=== PATIENT | female | born 1970 | race Caucasian/White ===

== ENCOUNTER 2017-04-11 08:50 | Inpatient (IN) | payer MEDICAID ==
[~2017-04-11] VITALS: Ht 157.5 cm; Wt 78.9 kg
[2017-04-11] VITALS (8 sets, daily range): BP systolic 105–145; BP diastolic 69–83; PULSE 61–73; RESP 16–18; TEMP 97.6–98.3; O2SAT 95–98
--- NOTE | 2017-04-11 08:52 | NUR ---
Pt BIB ALS placed ER bed 03, to ruthann, lunchroom monitor, report given to KULDEEP Barragan
--- NOTE | 2017-04-11 08:53 | NUR ---
Patient is stable. Patient states she has had sharp left side chest pain that radiates to entire left side of body for the past 12 hours continuously. Denies SOB. Patient stated it started after family verbal argument. Per medics patient was given 162mg aspirin and 1 sublingual nitro without relief. No other complaints or injuries per patient or noted.
--- NOTE | 2017-04-11 08:54 | NUR ---
Dr. Lim at bedside to assess pt.
--- NOTE | 2017-04-11 08:59 | NUR ---
Note undone in EDM - 04/11/17 at 0910 by LAWANDA Patient was brought by EMT for chest pain for the past 12 hours. EMT gave aspirin in the field. Patient has an IV 20g on RFA. Patient had an EKG done, patient is complaining of pain but no SOB. Patient is alert and oriented. Dr Lim was at bedside and EKG was read.
[2017-04-11 09:23] LABS: BASOPHILS % (AUTO) 0.7 % (0.0-2.0); EOSINOPHILS % (AUTO) 0.7 % (0.0-4.0); HEMATOCRIT 37.3 % (36-48); HEMOGLOBIN 12.1 g/dL (12.0-16.0); LYMPHOCYTES # (AUTO) 1.7 K/uL (1.0-5.5); LYMPHOCYTES % (AUTO) 26.4 % (20.5-51.5); MEAN CORPUSCULAR HEMOGLOBIN 26 pg (27-31); MEAN CORPUSCULAR HGB CONC 32 % (32-36); MEAN CORPUSCULAR VOLUME 79 fL (79.0-98.0); MONOCYTES # (AUTO) 0.3 K/uL (0.0-1.0); MONOCYTES % (AUTO) 5.1 % (1.7-9.3); NEUTROPHILS # (AUTO) 4.5 K/uL (1.8-7.7); NEUTROPHILS % (AUTO) 67.1 % (40.0-70.0); PLATELET COUNT (AUTO) 387 K/uL (130-430); RED BLOOD CELL COUNT(AUTO) 4.71 MIL/uL (4.2-6.2); RED CELL DISTRIBUTION WIDTH 17.6 % (9.0-15.0); WHITE BLOOD COUNT (AUTO) 6.5 K/uL (4.8-10.8)
[2017-04-11 09:29] LABS: CALCIUM 8.6 mg/dL (8.4-11.0); CREATININE 0.77 mg/dL (0.55-1.30); POTASSIUM 3.7 mmol/L (3.5-5.1)
[2017-04-11 09:32] LABS: INR 0.9 (0.8-1.2)
[2017-04-11 09:34] LABS: ALBUMIN 3.5 g/dL (3.4-4.8); TOTAL BILIRUBIN 0.2 mg/dL (0.0-1.0); TOTAL PROTEIN, SERUM 7.6 g/dL (6.4-8.3)
[2017-04-11] MEDS ORDERED: ASPIRIN 81 MG TABLET(ECOTRIN) PO ONE (10:15)
[2017-04-11] MEDS ORDERED: HYDROcodone/ACETAMIN 10-325 MG TAB PO ONE (10:15)
[2017-04-11] MEDS ORDERED: IBUPROFEN 600 MG TABLET PO ONE (10:15)
[2017-04-11] MEDS ORDERED: MULT-1117 PO (10:33)
[2017-04-11] MEDS ORDERED: FERR220S3 PO (10:33)
[2017-04-11] MEDS ORDERED: BECL8.7A5 INH (10:33)
[2017-04-11] MEDS ORDERED: FLUT16SP16 NS (10:33)
[2017-04-11] MEDS ORDERED: ALBMDI INH (10:33)
--- NOTE | 2017-04-11 10:33 | NUR ---
Medication reconciliation completed with information provided by patient. Any prior medication reconciliation on file was reviewed and corrected.
--- NOTE | 2017-04-11 10:46 | NUR ---
Telemetry strip printed and interpreted as sinus rhythm. HR: 70
--- NOTE | 2017-04-11 10:50 | NUR ---
Patient has two asthma medications with her, states that daughter is coming to package pick up medications and that she wishes to keep with her until she arrives. Patient educated that it is reccommended to keep her medications held in pharmacy until daughter arrives, pt wants medications to remain with her, patient verbalized understanding.
[2017-04-11 10:54] LABS: BILIRUBIN,URINE NEGATIVE (NEGATIVE); BLOOD, URINE NEGATIVE (NEGATIVE); CLARITY/URINE SL CLOUDY (CLEAR); COLOR,URINE YELLOW (YELLOW); GLUCOSE,URINE NEGATIVE (NEGATIVE); KETONES,URINE NEGATIVE (NEGATIVE); LEUKOCYTE ESTERASE ,URINE NEGATIVE (NEGATIVE); NITRITE, URINE NEGATIVE (NEGATIVE); PROTEIN URINE NEGATIVE (NEGATIVE); UROBILINOGEN,URINE 0.2 (0.2-1.0)
--- NOTE | 2017-04-11 10:58 | NUR ---
Patient will be admitted to care of Dr. Giang. Admitted to tele unit. Belongings list completed. Summary report printed. Report will be given at bedside by Laurel LIGHT
--- NOTE | 2017-04-11 11:02 | NUR ---
ADMIT NOTE Received pt from ER to the floor with a diagnosis of CHEST PAIN. Admission process initiated. patient oriented to pain management, safety and call light-teach back done.
[2017-04-11 11:15] LABS: BARBITURATE, URINE NEGATIVE (NEG <=200); BENZODIAZEPINE, URINE NEGATIVE (NEG <=150); CANNABINOID, URINE NEGATIVE (NEG <=50); COCAINE, URINE NEGATIVE (NEG <=150); METHAMPHETAMINES SCREEN,URINE NEGATIVE (NEG <=500); OPIATE, URINE NEGATIVE (NEG <=100); PHENCYCLIDINE SCREEN,URINE NEGATIVE (NEG <=25); UR TRICYCLIC ANTIDEPRESSANTS NEGATIVE (NEG <=300); URINE AMPHETAMINE NEGATIVE (NEG <=500); URINE METHADONE NEGATIVE (NEG <=200); URINE OXYCODONE SCREEN NEGATIVE (NEG <=100); URINE PROPOXYPHENE SCREEN NEGATIVE (NEG <=300)
--- NOTE | 2017-04-11 11:26 | NUR ---
ASSESSMENT NOTES: REPORT GIVEN BY ER NURSE AT BEDSIDE. PATIENT IN THE ROOM,CAME IN WITH THE DIAGNOSES OF CHEST PAIN. ADMIT NURSE IN THE ROM WELL. INITIAL ASSESSMENT RENDERED. ORIENTED TO CALL LIGHT,HOSPITAL ROUTINES AND SAFETY MEASURES RENDERED. PLACED ON TELEMETRY ORDERED.
--- NOTE | 2017-04-11 12:10 | NUR ---
meal: lunch served. stable.
[2017-04-11] MEDS ORDERED: POTASSIUM CHLORIDE 10 MEQ TAB.PRT.SR PO PRN (12:15)
[2017-04-11] MEDS ORDERED: LORazepam 2 MG/ML VIAL IVP PRN (12:15)
[2017-04-11] MEDS ORDERED: ZOLPIDEM TARTRATE 5 MG TABLET PO PRN (12:15)
[2017-04-11] MEDS ORDERED: ACETAMINOPHEN 325 MG TABLET PO PRN (12:15)
[2017-04-11] MEDS ORDERED: MAGNESIUM SULFATE 50 ML IV PRN (12:15)
[2017-04-11] MEDS ORDERED: DOCUSATE SODIUM 100 MG CAPSULE PO PRN (12:15)
[2017-04-11] MEDS ORDERED: ONDANSETRON HCL 4 MG/2 ML VIAL IVP PRN (12:15)
[2017-04-11] MEDS: MORPHINE 2 MG/ML INJ. SYRINGE IVP PRN ×2 (14:40→20:57)
--- NOTE | 2017-04-11 14:40 | NUR ---
pain meds: c/o mid chest pressure and due iv pain meds given per request.
--- NOTE | 2017-04-11 15:52 | NUR ---
CONSULT CARDIO CHEST PAIN DR JUAREZ [phone] S/W [facility] OFFICE @ [id number]
[2017-04-11] MEDS: ALBUTEROL SULFATE 0.083% 2.5 MG/3 ML VIAL.NEB INH SCH ×3 (16:14→23:00)
--- NOTE | 2017-04-11 16:30 | NUR ---
rounds: stable, resting. Patient stated pain is better this time.
--- NOTE | 2017-04-11 18:37 | NUR ---
closing notes: dinner served. denies any pain. continue to monitor.
--- NOTE | 2017-04-11 19:15 | NUR ---
change of shift.pt.assessed.pt.presents discomfort:hemiparesis:lt.side:arm/leg.i will f/u.iv access:located rt.forearm. have added the iv line extention.pt.presents room air.call light w/in the pt's reach.
--- NOTE | 2017-04-11 20:00 | NUR ---
pt.assessed.v/s assessed:values w/in normal limits.i have reiterated to the pt.that snacks are available. pt.requested skim milk and tyron crackers.i have provided the snacks.call light w/in the pt's reach.
[2017-04-11] MEDS: HEPARIN SODIUM,PORCINE 5000 UNITS/ML VIAL SUBCUT SCH (20:55)
[2017-04-11] MEDS: FLUTICASONE PROPIONATE 50 mCg/SPRAY 16 GM NS SCH (21:00)
[2017-04-11] MEDS ORDERED: ALBUTEROL MDI INHALATION 8 GM INH INH SCH (21:00)
--- NOTE | 2017-04-11 21:00 | NUR ---
pt.assessed.pt.requested medication for pain,and anxiety.i have administered:morphine:2mg ivp,ativan;2mg ivp. nila;l f/u re:pain med efficacy and anxiolytic results.call light w/in pt's reach.
--- NOTE | 2017-04-11 21:30 | NUR ---
pt.assessed post administration morphine/ativan.pt.presents quiescent affect;calm,asleep. no distress/discomfort manifested.call light w/in pt's reach.
--- NOTE | 2017-04-11 22:00 | NUR ---
pt.assessed.pt.presents quiescent affect;calm,asleep.no distress/discomfort manifested. call light w/in pt's reach.
--- NOTE | 2017-04-12 | NUR ---
pt.assessed.pt.presents quiescent affect;calm,asleep.no distress/discomfort manifested. call light w/in pt's reach.
--- NOTE | 2017-04-12 02:00 | NUR ---
pt.assessed.pt.presents quiescent affect;calm,asleep.no distress/discomfort manifested. call light w/in pt's reach.
--- NOTE | 2017-04-12 02:30 | NUR ---
pt.requested assistance to the b[facility].pt.assisted.pt.requested a sponge bath asisted per ingrid;teacher aide. pt.requested morphine/ativan following the bath.
[2017-04-12] MEDS: ALBUTEROL SULFATE 0.083% 2.5 MG/3 ML VIAL.NEB INH SCH ×5 (03:00→20:08)
--- NOTE | 2017-04-12 03:00 | NUR ---
pt.has been bathed.i have administered the morphine:2mg ivp,ativan:2mg ivp.to assess pt.re;pain afficacy and anxiolytic result .
[2017-04-12] MEDS: MORPHINE 2 MG/ML INJ. SYRINGE IVP PRN ×2 (03:01→12:10)
[2017-04-12 04:00] VITALS: BP 115/71; PULSE 62; RESP 18; TEMP 98; O2SAT 96
--- NOTE | 2017-04-12 04:00 | NUR ---
pt.assessed.v/s assessed.pt.presents quiescent affect;calm,asleep.call light w/in pt's reach.
--- NOTE | 2017-04-12 05:44 | NUR ---
pt.assessed.pt.presents quiescent affect;calm,asleep.no distress/discomfort manifested. call light w/in pt's reach.
--- NOTE | 2017-04-12 07:30 | NUR ---
am rounds: patient sleeping during rounds. report given by night nurse yu. Not in any distress. stable .
--- NOTE | 2017-04-12 07:52 | NUR ---
Nutrition Update Jason Scale 18 noted. Pt admitted for chest pain. Diet: cardiac BMI: 31.8 kg/m2 RD to follow per nutrition care standards.
[2017-04-12 08:12] VITALS: BP 106/58; PULSE 62; RESP 18; TEMP 97.5; O2SAT 100
--- NOTE | 2017-04-12 08:13 | NUR ---
vital signs: arousable,vital signs taken,afebrile and stable. no pain.
[2017-04-12] MEDS: HEPARIN SODIUM,PORCINE 5000 UNITS/ML VIAL SUBCUT SCH (10:10)
[2017-04-12] MEDS: PANTOPRAZOLE SODIUM 40 MG TAB PO SCH (10:10)
[2017-04-12] MEDS: FLUTICASONE PROPIONATE 50 mCg/SPRAY 16 GM NS SCH ×2 (10:10→20:46)
--- NOTE | 2017-04-12 10:14 | NUR ---
rounds: sitting on the bed,just finished breakfast.
[2017-04-12] MEDS ORDERED: PRO40 PO (11:07)
--- NOTE | 2017-04-12 11:23 | NUR ---
md rounds: patient seen by dr ahn with orders dc home if all test normal.f/u with pcp in 1 week.
[2017-04-12] MEDS ORDERED: PANTOPRAZOLE SODIUM 40 MG TAB PO ONE (11:30)
[2017-04-12 12:13] VITALS: BP 121/74; PULSE 74; RESP 18; TEMP 98; O2SAT 96
--- NOTE | 2017-04-12 12:16 | NUR ---
pain meds: c/o left chest pressure,due iv pain meds given per request.
--- NOTE | 2017-04-12 13:10 | NUR ---
vomits: vomitted a large amount of undigested food and due iv zofran given as ordered.
--- NOTE | 2017-04-12 15:01 | NUR ---
rounds: patient back from radiology.no vomits.
[2017-04-12 16:32] VITALS: BP 121/70; PULSE 68; RESP 15; TEMP 97.8; O2SAT 97
--- NOTE | 2017-04-12 16:42 | NUR ---
NEW ORDER: SPOKE WITH DR JORGENSEN AND RELAYED CT SCAN OF BRAIN/HEAD NORMAL,HOLD DC TONIGHT AND DC IN AM WITH SAME ORDERS.
[2017-04-12] MEDS: IBUPROFEN 400 MG TABLET PO SCH ×2 (18:22→20:46)
--- NOTE | 2017-04-12 18:23 | NUR ---
motrin: due po motrin given as scheduled. patient ate dinner well. no vomiting noted.
--- NOTE | 2017-04-12 18:54 | NUR ---
CLOSING NOTES: NO VOMITING NOTED THIS TIME. MD AWARE PATIENT HAD VOMITED EARLIER.INFORMED PATIENT HOLD DC TONIGHT AND DC IN AM ORDERED. DENIES ANY CHEST PAIN.
[2017-04-12 20:24] VITALS: BP 104/54; PULSE 71; RESP 16; TEMP 98; O2SAT 95
--- NOTE | 2017-04-12 20:25 | NUR ---
OPENING NOTES PATIENT IS A/OX4. NO SIGNS OF DISTRESS. BREATHING IS NO LABORED. IV IS PATENT. VITAL SIGNS ARE STABLE. PATIENT HAS NO COMPLAINTS OF CHEST PAIN. PATIENT INSTRUCTED TO CALL FOR ASSISTANCE. CALL LIGHT IS WITHIN REACH. SAFETY MEASURES ARE IN PLACE. PATIENT ALSO AWARE OF DISCHARGE HOME TOMORROW AFTER BREAKFAST. WILL CONTINUE TO MONITOR.
--- NOTE | 2017-04-12 23:10 | NUR ---
ROUNDS PATIENT WAS ASSISTED TO THE BEDSIDE COMMODE AND BACK INTO BED. PATIENT IS RESTING IN BED COMFORTABLY. WILL CONTINUE TO MONITOR. SAFETY MEASURES ARE IN PLACE.
[2017-04-13 00:08] VITALS: BP 101/66; PULSE 75; RESP 18; TEMP 97.7; O2SAT 96
[2017-04-13] MEDS: ALBUTEROL SULFATE 0.083% 2.5 MG/3 ML VIAL.NEB INH SCH ×3 (00:31→07:58)
--- NOTE | 2017-04-13 01:06 | NUR ---
ROUNDS PATIENT WAS ASSISTED TO THE BEDSIDE COMMODE AND BACK INTO BED. PATIENT IS RESTING IN BED. CALL LIGHT IS WITHIN REACH. SAFETY MEASURES ARE IN PLACE. WILL CONTINUE TO MONITOR.
--- NOTE | 2017-04-13 03:15 | NUR ---
ROUNDS PATIENT IS IN BED SLEEPING. NO SIGNS OF DISTRESS. BREATHING IS NON LABORED. SAFETY MEASURES ARE IN PLACE. WILL CONTINUE TO MONITOR.
[2017-04-13 04:42] VITALS: BP 127/67; PULSE 77; RESP 20; TEMP 97.3; O2SAT 97
--- NOTE | 2017-04-13 05:38 | NUR ---
ROUNDS ASSISTED PATIENT TO THE RESTROOM AND BACK INTO BED. PATIENT IS RESTING COMFORTABLY. WILL CONTINUE TO MONITOR.
--- NOTE | 2017-04-13 07:35 | NUR ---
COMMUNICATION WITH DR. JORGENSEN SPOKE WITH DR. JORGENSEN AND WILL INPUT ORDERS TO D/C PATIENT HOME TODAY IN THE MORNING.
[2017-04-13 08:00] VITALS: BP 117/65; PULSE 74; RESP 12; TEMP 98.2; O2SAT 100
--- NOTE | 2017-04-13 08:01 | NUR ---
CLOSING NOTES PATIENT IS IN BED RESTING COMFORTABLY. NO SIGNS OF DISTRESS. BREATHING IS NON LABORED. SAFETY MEASURES ARE IN PLACE. CALL LIGHT IS WITHIN REACH. REPORT GIVEN TO MORNING NURSE. PATIENT INFORMED OF D/C PLANING HOME.
[2017-04-13] MEDS: PANTOPRAZOLE SODIUM 40 MG TAB PO SCH (08:16)
[2017-04-13] MEDS: IBUPROFEN 400 MG TABLET PO SCH (08:17)
[2017-04-13] MEDS ORDERED: PANTOPRAZOLE SODIUM 40 MG TAB PO SCH (09:00)
--- NOTE | 2017-04-13 09:00 | NUR ---
MD rounds Dr. Giang at the bedside discussing D/C planning. Informed Pt to push the call light if Pt needs assistance with anything. Pt verbalized understanding. Call light within easy reach, bed at lowest position, will continue to monitor.
[2017-04-13] MEDS: FLUTICASONE PROPIONATE 50 mCg/SPRAY 16 GM NS SCH (09:53)
[2017-04-13 10:12] VITALS: BP 115/74; PULSE 80; RESP 16; TEMP 98; O2SAT 99
--- NOTE | 2017-04-13 10:37 | NUR ---
D/C Patient Patient given medication reconciliation form and D/C instructions. Exit Care provided. Patient verbalized understanding. MD discussed with patient the results and treatment provided. Ambulatory with steady gait for discharge to home. Patient in stable condition, ID band removed. IV catheter removed, intact and dressing applied, no active bleeding. Patient educated on pain management. All belongings sent with patient. Patient transported to [facility] via wheelchair.
--- NOTE | 2017-04-17 16:05 | NUR ---
Discharge Follow Up Phone Call [facility] phoned patient. Patient stated she was not feeling well. She has continued to have heartburn. It happens mostly at night. She has not made a follow up appointment with a PCP as she stated she does not have one. Her prior one will not make a follow up appointment. [facility] phoned patient today and discussed above. Patient needs to follow those instructions to change PCPs. Patient stated she had not filled her prescription for protonix. She stated [facility] has been calling but she hasn't answered because they do not accept her insurance. Patient will call the [facility] and ask what pharmacy to use and have her prescription transferred over. Patient stated she will do this upon ending this call. Patient agreed to a follow up call. Addendum: 04/19/17 at 1238 by Raquel Kelly LCSW CJ phoned patient today for follow up. Patient determined that [facility] does take her insurance and picked up her prescription. Patient is taking it as directed. Patient is still working with [facility] on getting a new PCP. Patient denies the need for further follow up calls.
== END 2017-04-13 10:40 | disposition home or self-care (01) | DRG 243 ==
LOC: SED 08:50 → STU 10:46
PROVIDERS: ADMIT General Practice; ATTEND General Practice
DX: K21.9 Gastro-esophageal reflux disease without esophagitis (principal); E66.9 Obesity, unspecified; M62.81 Muscle weakness (generalized); I25.2 Old myocardial infarction; J45.909 Unspecified asthma, uncomplicated; Z88.0 Allergy status to penicillin; Z98.51 Tubal ligation status; Z79.899 Other long term (current) drug therapy; Z68.31 Body mass index [BMI] 31.0-31.9, adult
CPT/HCPCS: 36415; 70450-TC; 71010; 80053; 80307; 81003; 82550-TC; 83880; 84484; 84703; 85025; 85379; 85610-TC; 85730-TC; 93005; 93306; 94640; 94760; 97116-GP; 99285; J1644; J2060; J2270; J2405